=== PATIENT | female | born 1975 | race Two or more races ===

== ENCOUNTER 2020-11-15 13:55 | Emergency (ER) | payer OTHER ==
[~2020-11-15] VITALS: Ht 167.6 cm; Wt 60.8 kg
[2020-11-15 14:15] VITALS: BP 91/52
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
--- NOTE | 2020-11-15 14:56 | NUR ---
The patient alert and oriented x4. Patient discharged to home in stable condition. Written and verbal after care instructions given. Patient verbalizes understanding of instruction.
== END 2020-11-15 14:58 | disposition home or self-care (01) ==
LOC: ER 14:01
DX: M54.6 Pain in thoracic spine (principal); F17.200 Nicotine dependence, unspecified, uncomplicated; V49.49XA Driver injured in collision with other motor vehicles in traffic accident, initial encounter; Y93.89 Activity, other specified; Y92.413 State road as the place of occurrence of the external cause; Y99.8 Other external cause status